=== PATIENT | female | born 1990 | race Two or more races ===

== ENCOUNTER → 2018-10-27 | Outpatient (CLI) | payer MEDICAID ==
[2018-10-27 10:36] LABS: Basophils # (auto) 0 uL; Basophils % (auto) 0.2 % (0.0-2.0); Eosinophils # (auto) 0.1 uL; Eosinophils % (auto) 1.3 % (0.0-7.0); Hematocrit 33.9 % (36.0-46.0); Hemoglobin 11.7 g/dL (12.2-16.2); Lymphocytes # (auto) 2.3 uL; Lymphocytes % (auto) 23.7 % (10.0-50.0); Mean Corpuscular Hemoglobin 32.5 pg (28.0-32.0); Mean Corpuscular Hgb Conc. 34.6 g/dL (32.0-36.0); Monocytes # (auto) 0.7 uL; Monocytes % (auto) 7.5 % (0.0-12.0); Neutrophils # (auto) 6.6 uL; Neutrophils % (auto) 67.3 % (37.0-80.0); Nucleated Red Blood Cells % 0.1 %; Platelet Count (auto) 288 10^3/uL (140-450); Red Cell Distribution Width 14.4 % (11.8-14.3); White Blood Cell 9.8 10^3/uL (4.4-10.8)
[2018-10-27 12:03] LABS: Alcohol, Urine < 3.0 mg/dL (0-5); Amphetamine Screen, Urine NEGATIVE (NEGATIVE); Barbiturate Scree,Urine NEGATIVE (NEGATIVE); Benzodiazephine Screen, Urine NEGATIVE (NEGATIVE); Cannabinoid Screen, Urine NEGATIVE (NEGATIVE); Cocaine Screen, Urine NEGATIVE (NEGATIVE); Opiate Scree,Urine NEGATIVE (NEGATIVE); Phencyclidine Screen, Urine NEGATIVE (NEGATIVE)
[2018-10-28 06:06] LABS: RPR Non Reactive (Non Reactive)
== END | disposition home or self-care (01) ==
LOC: LAB 08:58
PROVIDERS: ATTEND Obstetrics & Gynecology
DX: O23.41 Unspecified infection of urinary tract in pregnancy, first trimester (principal); Z3A.10 10 weeks gestation of pregnancy
CPT/HCPCS: 36415; 80307; 83036; 84702; 85025; 86592; 86703; 86762; 86850; 86900; 86901; 87086; 87340

== ENCOUNTER → 2019-01-05 | Outpatient (CLI) | payer MEDICAID ==
[~2019-01-05] MED LIST: PREN-145 OR
[2019-01-05 08:23] LABS: Basophils # (auto) 0.1 uL; Basophils % (auto) 0.5 % (0.0-2.0); Eosinophils # (auto) 0.1 uL; Eosinophils % (auto) 1.1 % (0.0-7.0); Hematocrit 37.3 % (36.0-46.0); Hemoglobin 12.7 g/dL (12.2-16.2); Lymphocytes # (auto) 2.8 uL; Lymphocytes % (auto) 22.7 % (10.0-50.0); Mean Corpuscular Hemoglobin 31.2 pg (28.0-32.0); Mean Corpuscular Hgb Conc. 33.9 g/dL (32.0-36.0); Monocytes # (auto) 0.8 uL; Monocytes % (auto) 6.8 % (0.0-12.0); Neutrophils # (auto) 8.6 uL; Neutrophils % (auto) 68.9 % (37.0-80.0); Platelet Count (auto) 341 10^3/uL (140-450); Red Blood Cells 4.06 10^6/uL (4.0-5.20); Red Cell Distribution Width 12.8 % (11.8-14.3); White Blood Cell 12.4 10^3/uL (4.4-10.8)
== END | disposition home or self-care (01) ==
LOC: LAB 08:10
PROVIDERS: ATTEND Obstetrics & Gynecology
DX: O99.810 Abnormal glucose complicating pregnancy (principal); Z3A.29 29 weeks gestation of pregnancy
CPT/HCPCS: 36415; 82951; 83036; 85025

== ENCOUNTER 2019-02-06 11:06 | Observation (INO) | payer MEDICAID | END 2019-02-06 12:35 | disposition home or self-care (01) | DRG 566 | LOC: LDRP 11:06 | PROVIDERS: ADMIT Obstetrics & Gynecology; ATTEND Obstetrics & Gynecology | DX: O10.913 Unspecified pre-existing hypertension complicating pregnancy, third trimester (principal); O99.343 Other mental disorders complicating pregnancy, third trimester; F32.9 Major depressive disorder, single episode, unspecified; Z3A.34 34 weeks gestation of pregnancy | CPT/HCPCS: 59025; 76818; 81002; 82948; 82962; G0378 ==

== ENCOUNTER 2019-02-11 15:19 | Observation (INO) | payer MEDICAID ==
[2019-02-11] MEDS ORDERED: PREN-145 OR (16:19)
[2019-02-11] MEDS ORDERED: TERBUTALINE SULFATE 1 MG/ML 1ML VIAL SC SCH (16:45)
[2019-02-11] MEDS ORDERED: NIFEdipine 10 MG CAP PO ONE (17:30)
== END 2019-02-11 18:15 | disposition home or self-care (01) | DRG 566 ==
LOC: LDRP 15:19
PROVIDERS: ADMIT Obstetrics & Gynecology; ATTEND Obstetrics & Gynecology
DX: O24.419 Gestational diabetes mellitus in pregnancy, unspecified control (principal); Z3A.34 34 weeks gestation of pregnancy
CPT/HCPCS: 59025; 76818; 81002; 82962; G0378

== ENCOUNTER 2019-02-18 14:27 | Observation (INO) | payer MEDICAID | END 2019-02-18 15:30 | disposition home or self-care (01) | DRG 566 | LOC: LDRP 14:27 | PROVIDERS: ADMIT Obstetrics & Gynecology; ATTEND Obstetrics & Gynecology | DX: O24.410 Gestational diabetes mellitus in pregnancy, diet controlled (principal); Z3A.35 35 weeks gestation of pregnancy | CPT/HCPCS: 59025; 76818; 81002; 82948; 82962; G0378 ==

== ENCOUNTER 2019-02-25 14:10 | Observation (INO) | payer MEDICAID | END 2019-02-25 15:20 | disposition home or self-care (01) | DRG 566 | LOC: LDRP 14:10 | PROVIDERS: ADMIT Specialist; ATTEND Specialist | DX: O24.419 Gestational diabetes mellitus in pregnancy, unspecified control (principal); Z3A.36 36 weeks gestation of pregnancy | CPT/HCPCS: 59025; 76818; 81002; 82948; 82962; G0378 ==

== ENCOUNTER 2019-03-04 14:08 | Observation (INO) | payer MEDICAID | END 2019-03-04 15:00 | disposition home or self-care (01) | DRG 566 | LOC: LDRP 14:08 | PROVIDERS: ADMIT Obstetrics & Gynecology; ATTEND Obstetrics & Gynecology | DX: O24.419 Gestational diabetes mellitus in pregnancy, unspecified control (principal); O60.03 Preterm labor without delivery, third trimester; O12.03 Gestational edema, third trimester; Z3A.37 37 weeks gestation of pregnancy | CPT/HCPCS: 59025; 76818; 81002; 82948; 82962; G0378 ==

== ENCOUNTER 2019-03-10 05:34 | Inpatient (IN) | payer MEDICAID ==
[~2019-03-10] VITALS: Ht 167.6 cm; Wt 86.2 kg
[2019-03-10] MEDS ORDERED: LIDOCAINE 2%HCL (LOCAL ANESTH.) INJ 20ML MDV ID ONE (06:30)
[2019-03-10] MEDS ORDERED: LACT. RINGERS/OXYTOCIN 20UNITS 1,000 ML IV SCH ×2 (06:30→08:23)
[2019-03-10] MEDS ORDERED: PHISODERM TOP SOLN 240ML BTL TOP PRN (06:30)
[2019-03-10] MEDS ORDERED: METHYLERGONOVINE MALEATE 0.2 MG/ML AMP IM PRN (06:30)
[2019-03-10] MEDS ORDERED: WITCH HAZEL-GLYCERIN PAD TOP PRN (06:30)
[2019-03-10] MEDS ORDERED: NALBUPHINE HCL 10 MG/1ml INJECTION IV PRN (06:30)
[2019-03-10] MEDS ORDERED: DERMOPLAST 60ML BOTTLE TOP PRN (06:30)
[2019-03-10 07:33] LABS: Basophils # (auto) 0 uL; Basophils % (auto) 0.2 % (0.0-2.0); Eosinophils # (auto) 0.1 uL; Eosinophils % (auto) 1.2 % (0.0-7.0); Hematocrit 30.2 % (36.0-46.0); Lymphocytes # (auto) 1.5 uL; Lymphocytes % (auto) 12.4 % (10.0-50.0); Mean Corpuscular Hemoglobin 28.2 pg (28.0-32.0); Mean Corpuscular Hgb Conc. 33.1 g/dL (32.0-36.0); Mean Corpuscular Volume 85.1 fL (80.0-100.0); Monocytes # (auto) 0.9 uL; Monocytes % (auto) 7.7 % (0.0-12.0); Neutrophils # (auto) 9.6 uL; Neutrophils % (auto) 78.5 % (37.0-80.0); Nucleated Red Blood Cells % 0.1 %; Platelet Count (auto) 315 10^3/uL (140-450); Red Blood Cells 3.55 10^6/uL (4.0-5.20); Red Cell Distribution Width 14.3 % (11.8-14.3); White Blood Cell 12.2 10^3/uL (4.4-10.8)
[2019-03-10 07:37] LABS: Urine Bacteria FEW /hpf (None Seen); Urine Blood 3+ /uL (Negative); Urine Budding Yeast OCCASIONAL /hpf (None Seen); Urine Mucus FEW (None Seen); Urine Specific Gravity 1.017 (1.001-1.035); Urine WBC 16 /hpf (0 - 5)
[2019-03-10 07:48] LABS: Albumin 2.5 g/dL (3.4-5.0); Calcium 9.2 mg/dL (8.5-10.1); Potassium 3.7 mmol/L (3.5-5.1)
[2019-03-10 07:49] LABS: BUN/Creatinine Ratio 23.6
[2019-03-10 07:51] LABS: Alcohol, Urine < 3.0 mg/dL (0-5); Amphetamine Screen, Urine NEGATIVE (NEGATIVE); Barbiturate Scree,Urine NEGATIVE (NEGATIVE); Benzodiazephine Screen, Urine NEGATIVE (NEGATIVE); Cannabinoid Screen, Urine NEGATIVE (NEGATIVE); Cocaine Screen, Urine NEGATIVE (NEGATIVE); Opiate Scree,Urine NEGATIVE (NEGATIVE); Phencyclidine Screen, Urine NEGATIVE (NEGATIVE)
[2019-03-10 07:53] LABS: Bilirubin, Total 0.2 mg/dL (0.2-1.0); Total Protein 6.7 g/dL (6.4-8.2)
[2019-03-10 07:54] LABS: INR 0.85 (0.9-1.15); Partial Thromboplastin Time 25.8 sec (23.78-33.04); Prothrombin Time 9.2 sec (9.27-12.13)
[2019-03-10] MEDS ORDERED: TERBUTALINE SULFATE 1 MG/ML 1ML VIAL SC ONE (08:30)
[2019-03-10] MEDS: LACTATED RINGER'S 1,000 ML IV SCH ×2 (09:13→10:55)
[2019-03-10] MEDS ORDERED: fentaNYL W ROPIVACAINE 150 ML EPI SCH ×2 (10:30→11:15)
[2019-03-10] MEDS ORDERED: fentaNYL CITRATE 100 MCG/2 ML VL IV ONE ×2 (10:30→11:15)
[2019-03-10] MEDS ORDERED: LIDOCAINE HCL 2 %PF INJ 10ML AMP IJ ONE (10:30)
[2019-03-10] MEDS ORDERED: NALOXONE HCL 0.4 MG/ML VIAL IV ONE ×2 (10:30→11:15)
[2019-03-10] MEDS ORDERED: ePHEDrine SULFATE 50 MG/ML AMP IV ONE ×2 (10:30→11:15)
[2019-03-10] MEDS ORDERED: LACTATED RINGER'S 1,000 ML IV ONE (11:12)
[2019-03-10] MEDS ORDERED: LACTATED RINGER'S 500 ML IV ONE (11:12)
[2019-03-10] MEDS ORDERED: SODIUM CHLORIDE 0.9% 500 ML IV PRN (11:12)
[2019-03-10] MEDS ORDERED: LIDOCAINE 2%HCL (LOCAL ANESTH.) INJ 20ML MDV IJ ONE (11:15)
[2019-03-10] MEDS ORDERED: ACETAMINOPHEN 325 MG TAB PO PRN (16:15)
[2019-03-10 19:00] VITALS: BP 114/73
--- NOTE | 2019-03-10 19:00 | NUR ---
Teaching: Reviewed information in [facility] booklet with patient. Discussed benefits of and risks associated with not . Discussed different positions, proper latch, feeding cues, and baby-led . Provided information of medication side effects related to . All questions and concerns addressed at this time. Patient verbalized understanding of information.
--- NOTE | 2019-03-10 19:30 | NUR ---
Ambulation: Patient OOB with standby assistance by RN. Patient ambulated to bathroom with steady gait. Patient able to void without difficulty. [facility] teaching provided with returned demonstration by patient. Clean gown provided and bed linen changed. Patient ambulated back to bed with steady gait and no distress noted.
[2019-03-11 02:45] VITALS: BP 114/71
[2019-03-11] MEDS ORDERED: TETANUS-DIPTH-ACEL PERTUSSIS 0.5ML SYRG IM ONE (04:00)
[2019-03-11] MEDS: SIMETHICONE 80 MG CHEWABLE TABLET PO PRN ×2 (04:20→10:43)
[2019-03-11 07:30] VITALS: BP 118/58
[2019-03-11 11:23] VITALS: BP 122/71
[2019-03-11 15:00] VITALS: BP 127/59
--- NOTE | 2019-03-11 17:00 | NUR ---
Forrest from at bedside. Forrest reports that she gave the pt resources for follow up care and feels that the pt is okay for discharge this evening.
--- NOTE | 2019-03-11 19:10 | NUR ---
Discharge: Discharge instructions given as ordered. Pt encouraged to follow up with [facility]ICAL [employer] TESTER as instructed. All questions and concerns addressed. Patient verbalized understanding. Medication reconciliation completed and copy given to patient. All required/requested vaccines given and copies of vaccinations given to patient. Patient encouraged to prepare to depart unit.
[2019-03-11 19:20] VITALS: BP 139/72
[2019-03-11 19:25] VITALS: BP 139/72
--- NOTE | 2019-03-11 19:25 | NUR ---
Discharge: Patient taken to vehicle via wheelchair with all personal belongings, accompanied by staff and family member. No distress noted at time of departure, no adverse changes in status since initial assessment.
== END 2019-03-11 19:25 | disposition home or self-care (01) | DRG 560 ==
LOC: LDRP 05:34 → OBSVTOIN 05:34 → LDRP 07:11
PROVIDERS: ADMIT Obstetrics & Gynecology; ATTEND Obstetrics & Gynecology
PROC: 10E0XZZ Delivery of Products of Conception, External Approach (ICD-10-PCS; principal; 2019-03-10)
PROC: 0KQM0ZZ Repair Perineum Muscle, Open Approach (ICD-10-PCS; 2019-03-10)
PROC: 0UQMXZZ Repair Vulva, External Approach (ICD-10-PCS; 2019-03-10)
PROC: 3E0R3BZ Introduction of Anesthetic Agent into Spinal Canal, Percutaneous Approach (ICD-10-PCS; 2019-03-10)
PROC: 00HU33Z Insertion of Infusion Device into Spinal Canal, Percutaneous Approach (ICD-10-PCS; 2019-03-10)
DX: O70.1 Second degree perineal laceration during delivery (principal); O71.82 Other specified trauma to perineum and vulva; Z88.8 Allergy status to other drugs, medicaments and biological substances; Z37.0 Single live birth; Z3A.39 39 weeks gestation of pregnancy
CPT/HCPCS: 36415; 51702; 59025; 59409; 62282; 80053; 80307; 81001; 81002; 82962; 85025; 85610; 85730; 86592; 86850; 86900; 86901; 90715; 94762; 96365; 96366; G0378; J2590; J3010

== ENCOUNTER → 2023-05-29 | Emergency (ER) | payer MEDICAID ==
[~2023-05-29] VITALS: Ht 167.6 cm; Wt 63.9 kg
[~2023-05-29] MED LIST changes: +PANTOPRAZOLE 40 MG/10 ML VIAL INJ IV ONE; +PROCHLORPERAZINE EDISYLATE 5 MG/ML 2ML VIAL IV ONE; +SODIUM CHLORIDE 0.9% 1,000 ML IVB ONE
[2023-05-29 07:12] LABS: Basophils # (auto) 0 10 ^3/uL (0-0.2); Basophils % (auto) 0.1 % (0.0-2.0); Eosinophils # (auto) 0.1 10 ^3/uL (0-0.8); Eosinophils % (auto) 0.7 % (0.0-7.0); Hematocrit 36.6 % (36.0-46.0); Hemoglobin 12.5 g/dL (12.2-16.2); Lymphocytes # (auto) 1.4 10 ^3/uL (0.4-5.4); Lymphocytes % (auto) 16.5 % (10.0-50.0); Mean Corpuscular Hemoglobin 33.2 pg (28.0-32.0); Mean Corpuscular Hgb Conc. 34.2 g/dL (32.0-36.0); Mean Corpuscular Volume 97.2 fL (80.0-100.0); Monocytes # (auto) 0.5 10 ^3/uL (0-1.3); Monocytes % (auto) 6.6 % (0.0-12.0); Neutrophils # (auto) 6.3 10 ^3/uL (1.6-8.6); Neutrophils % (auto) 76.1 % (37.0-80.0); Red Blood Cells 3.77 10^6/uL (4.0-5.20); Red Cell Distribution Width 13.9 % (11.8-14.3); White Blood Cell 8.2 10^3/uL (4.4-10.8)
[2023-05-29 07:24] LABS: Urine Bacteria NONE SEEN /hpf (None Seen); Urine Blood Negative /uL (Negative); Urine Specific Gravity 1.013 (1.001-1.035); Urine WBC 1 /hpf (0 - 5)
[2023-05-29 07:32] VITALS: BP 108/64; PULSE 59; RESP 19; TEMP 98.7; O2SAT 99
[2023-05-29 07:40] LABS: Albumin 3.6 g/dL (3.4-5.0); BUN/Creatinine Ratio 9.5 (10.0-20.0); Calcium 8.5 mg/dL (8.5-10.1); Potassium 3.8 mmol/L (3.5-5.1)
[2023-05-29 07:43] LABS: Bilirubin, Total 0.2 mg/dL (0.2-1.0); Total Protein 6.8 g/dL (6.4-8.2)
== END | disposition home or self-care (01) ==
LOC: ER 05:53
DX: R10.13 Epigastric pain (principal); R11.0 Nausea; F12.10 Cannabis abuse, uncomplicated; Z88.6 Allergy status to analgesic agent
CPT/HCPCS: 36415; 80053; 81001; 83690; 85025; 96374; 96375; 99284; C9113; J0780; J7030

== ENCOUNTER 2024-06-07 11:25 | Observation (INO) | payer MEDICAID ==
[~2024-06-07 11:25] MED LIST changes: -PANTOPRAZOLE 40 MG/10 ML VIAL INJ IV ONE; -PROCHLORPERAZINE EDISYLATE 5 MG/ML 2ML VIAL IV ONE; -SODIUM CHLORIDE 0.9% 1,000 ML IVB ONE
== END 2024-06-07 14:00 | disposition home or self-care (01) ==
LOC: LDRP 11:25
PROVIDERS: ADMIT Obstetrics & Gynecology; ATTEND Obstetrics & Gynecology
DX: O23.43 Unspecified infection of urinary tract in pregnancy, third trimester (principal); O62.9 Abnormality of forces of labor, unspecified; O24.419 Gestational diabetes mellitus in pregnancy, unspecified control; Z3A.35 35 weeks gestation of pregnancy
CPT/HCPCS: 59025; 76818; 81002; 94760; G0378

== ENCOUNTER 2024-06-14 09:00 | Observation (INO) | payer MEDICAID | END 2024-06-14 10:45 | disposition home or self-care (01) | LOC: UNDOADMOB 09:00 → LDRP 09:00 → UNDODISOB 10:45 | PROVIDERS: ADMIT Obstetrics & Gynecology; ATTEND Obstetrics & Gynecology | DX: O24.419 Gestational diabetes mellitus in pregnancy, unspecified control (principal); Z3A.36 36 weeks gestation of pregnancy | CPT/HCPCS: 59025; 76818; 81002; 82948; 82962; 94760; G0378 ==

== ENCOUNTER 2024-06-21 11:00 | Observation (INO) | payer MEDICAID ==
[~2024-06-21] VITALS: Ht 167.6 cm; Wt 81.2 kg
[2024-06-21 13:09] LABS: Fern Testing Negative
[2024-06-21 13:10] LABS: Urine Bacteria FEW /hpf (None Seen); Urine Blood 3+ /uL (Negative); Urine Clarity Ex.Turbid (Clear); Urine Color Light-Orange (Yellow); Urine Mucus FEW (None Seen); Urine Protein, UAD 1+ (Negative); Urine Specific Gravity 1.027 (1.001-1.035); Urine Urobilinogen Normal (Negative); Urine WBC 283 /hpf (0 - 5); Urine WBC Clumps PRESENT /hpf (None Seen)
== END 2024-06-21 14:02 | disposition home or self-care (01) ==
LOC: LDRP 11:00
PROVIDERS: ADMIT Obstetrics & Gynecology; ATTEND Obstetrics & Gynecology
DX: O24.419 Gestational diabetes mellitus in pregnancy, unspecified control (principal); O62.9 Abnormality of forces of labor, unspecified; Z3A.37 37 weeks gestation of pregnancy
CPT/HCPCS: 59025; 76818; 81001; 81002; 82948; 82962; 94760; G0378; Q0114

== ENCOUNTER → 2024-06-21 | Outpatient (CLI) | payer MEDICAID ==
[2024-06-22 22:06] LABS: Chlamydia Trachomatis, NAA Negative (Negative); Neisseria gonorrhoeae, NAA Negative (Negative)
== END | disposition home or self-care (01) ==
LOC: LAB 10:39
PROVIDERS: ATTEND Obstetrics & Gynecology
DX: Z34.80 Encounter for supervision of other normal pregnancy, unspecified trimester (principal); Z41.3 Encounter for ear piercing

== ENCOUNTER 2025-01-19 19:26 | Emergency (ER) | payer MEDICAID ==
[~2025-01-19] VITALS: Ht 167.6 cm; Wt 106.0 kg
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
[2025-01-19 20:05] LABS: Basophils # (auto) 0 10 ^3/uL (0-0.2); Basophils % (auto) 0.2 % (0.0-2.0); Eosinophils # (auto) 0 10 ^3/uL (0-0.8); Eosinophils % (auto) 0.2 % (0.0-7.0); Hematocrit 40.1 % (36.0-46.0); Hemoglobin 13.6 g/dL (12.2-16.2); Lymphocytes # (auto) 1.9 10 ^3/uL (0.4-5.4); Lymphocytes % (auto) 22.2 % (10.0-50.0); Mean Corpuscular Hemoglobin 31.8 pg (28.0-32.0); Mean Corpuscular Hgb Conc. 33.9 g/dL (32.0-36.0); Mean Corpuscular Volume 93.8 fL (80.0-100.0); Monocytes # (auto) 0.6 10 ^3/uL (0-1.3); Monocytes % (auto) 6.7 % (0.0-12.0); Neutrophils # (auto) 6.1 10 ^3/uL (1.6-8.6); Neutrophils % (auto) 70.7 % (37.0-80.0); Platelet Count (auto) 342 10^3/uL (140-450); Red Blood Cells 4.28 10^6/uL (4.0-5.20); Red Cell Distribution Width 14.8 % (11.8-14.3); White Blood Cell 8.6 10^3/uL (4.4-10.8)
[2025-01-19 20:20] VITALS: BP 127/78; PULSE 94; RESP 18; TEMP 98; O2SAT 99
[2025-01-19 20:22] LABS: Alanine Aminotransferase 24 U/L (7-40); Alkaline Phosphatase 72 U/L (46-116); Anion Gap 13 (5-15); Aspartate Aminotransferase 31 U/L (13-40); BUN/Creatinine Ratio 8.3 (10.0-20.0); Blood Urea Nitrogen 9 mg/dL (9-23); Calcium 9.7 mg/dL (8.7-10.4); Carbon Dioxide 23 mmol/L (20-31); Glucose 85 mg/dL (74-106); Potassium 3.6 mmol/L (3.5-5.1); Sodium 145 mmol/L (136-145)
[2025-01-19 20:23] LABS: Albumin 5.4 g/dL (3.2-4.8); Bilirubin, Total 0.5 mg/dL (0.2-1.0); Chloride 109 mmol/L (98-107); Total Protein 8.2 g/dL (5.7-8.2)
[2025-01-19 20:30] LABS: Blood Alcohol 285.4 mg/dL (<10)
== END 2025-01-19 20:45 | disposition left against medical advice (07) ==
LOC: EDBD 19:26 → ER 19:26
DX: F29 Unspecified psychosis not due to a substance or known physiological condition (principal); F32.9 Major depressive disorder, single episode, unspecified
CPT/HCPCS: 36415; 80053; 80320; 83880; 85025